=== PATIENT | male | born 1990 | race Hispanic/Latino ===

== ENCOUNTER 2025-04-06 16:19 | Inpatient (IN) | payer BC ==
[2025-04-06 18:05] LABS: Absolute Lymphocytes (CBC) 2.9 K/uL (0.7-4.9); Hematocrit 45.4 % (39.6-49.0); Hemoglobin 15.3 g/dL (13.6-17.9); MCH 30.4 pg (27.0-35.0); MCHC 33.7 g/dL (32.0-36.0); MCV 90.1 fL (80-100); MPV 10.8 fL (7.6-11.3); Nucleated RBC Absolute Count 0.0 (0-0); Nucleated Red Blood Cells % 0.1 % (0-0); RBC Red Blood Cell Count 5.04 M/uL (4.33-5.43); White Blood Count 18.30 thou/uL (4.3-10.9)
[2025-04-06 18:16] LABS: Sqamous Epithelial <5 /HPF (None Seen); Urine Crystals Unidentified Few /HPF (None Seen); Urine Culture Reflex Order REFLEXED; Urine Microscopic Reflex YN ORDER UMIC; Urine WBC Clump Rare /HPF (None Seen); Urine Yeast (Budding) Trace /HPF (None Seen)
[2025-04-06 18:16] LABS: PT Prothrombin Time 14.0 SECONDS (10-13.0); PTT, Activated Partial Thromb 31.9 SECONDS (27.2-37.4); Protime INR 1.25
[2025-04-06 18:22] LABS: ALT/SGPT 60.0 U/L (16-61); AST/SGOT 27.0 U/L (15-37); Albumin 3.6 g/dL (3.4-5.0); Albumin/Globulin Ratio 0.9 (1.1-1.8); Alkaline Phosphatase 82.0 U/L (45-117); Anion Gap 9.6 mEq/L (5.0-15.0); BUN Blood Urea Nitrogen 15.0 mg/dL (7-18); Globulin 4.2 g/dL (2.3-3.5); Glucose Level 109.0 mg/dL (74-106); Potassium 3.6 mEq/L (3.5-5.1)
--- NOTE | 2025-04-06 18:35 | RAD REPORT ---
Stone Protocol CLINICAL INDICATION: Male, 34 years old.urinary symptoms, fever TECHNIQUE: CT abdomen and pelvis was performed, without IV contrast, as per department protocol using a CT stone protocol. Axial, sagittal and coronal reconstructions were obtained. One or more of the following dose reduction techniques were used: Automated exposure control, adjustment of the mA and/o r kV according to the patient size, and/or iterative reconstruction. Unless otherwise specified, incidental findings do not require dedicated imaging follow-up. [id number]. IV CONTRAST: Not administered. COMPARISON: No prior exams FINDINGS: The lack of intravenous contrast limits the sensitivity of this exam for evaluation of solid visceral organs, vascular structures, and retroperitoneum. LOWER CHEST: No acute process identified.No significant pericardial effusion. UPPER GI: No significant abnormality. LIVER: Hepatic steatosis, but otherwise unremarkable. GALLBLADDER/BILE DUCTS: No biliary ductal dilatation.? PANCREAS: No mass, ductal dilation, or dayne-pancreatic fluid. SPLEEN: Unremarkable. ADRENALS: No adrenal masses. KIDNEYS AND URETERS: No hydronephrosis.Limited evaluation for renal lesions in the absence of IV cont rast.No renal calculi.No ureteral calculi. ABDOMINAL AORTA AND OTHER VESSELS: Normal caliber aorta and IVC. PERITONEUM: No abnormal free fluid. No free air. LYMPH NODES: No pathologic lymphadenopathy. ABDOMINAL WALL: Fat containing inguinal hernias. SMALL BOWEL/COLON: Small bowel has normal course and caliber. No colonic wall thickening or pericolon ic inflammatory changes.Normal appendix. URINARY BLADDER: Underdistended but grossly unremarkable. REPRODUCTIVE ORGANS: No pathologic process. MUSCULOSKELETAL: No acute or suspicious osseous abnormality. ADDITIONAL FINDINGS: None. IMPRESSION: No acute findings within the abdomen or pelvis.
[2025-04-06] MEDS ORDERED: ACETAMINOPHEN 500 MG TAB ONE (18:51)
[2025-04-06] MEDS ORDERED: IBUPROFEN 400 MG TAB ONE (18:51)
[2025-04-06] MEDS ORDERED: NA CHLORIDE 0.9% 500 ML ONE (18:51)
[2025-04-06] MEDS ORDERED: CIPROFLOXACIN 400mg IV 400 MG/200 ML BAG IV ONE (19:06)
--- NOTE | 2025-04-06 19:23 | ER ---
Nurse's Notes [facility] Name: Kane Elizondo Age: 34 yrs Sex: Male : 1990 Arrival Date: 04/06/2025 Time: 16:19 Bed 5 Private MD: Diagnosis: Fever, unspecified;UTI/ Urinary tract infection, site not specified;Tachycardia, unspecified Presentation: 04/06 17:02 Chief complaint: Patient states: WOKE UP FEELING NAUSEOUS AND BEGAN HAVING CHILLS AND dd2 SWEATS WITH FEELING THE NEED TO URINATE BUT DECREASED AMOUNT. REPORTS WENT TO URGENT CARE AND WAS ADVISED TO COME TO ER. Coronavirus screen: At this time, the client does not indicate any symptoms associated with coronavirus-19. Ebola Screen: No symptoms or risks identified at this time. Initial Sepsis Screen: Does the patient meet any 2 criteria? No. Patient's initial sepsis screen is negative. Does the patient have a suspected source of infection? No. Patient's initial sepsis screen is negative. Risk Assessment: Do you want to hurt yourself or someone else? Patient reports no desire to harm self or others. Onset of symptoms was April 06, 2025. 17:02 Method Of Arrival: Ambulatory dd2 17:02 Acuity: SANDRA 3 dd2 Triage Assessment: 17:05 General: Appears in no apparent distress. uncomfortable, Behavior is calm, cooperative, dd2 appropriate for age. Pain: Complains of pain in left low back Pain does not radiate. Pain currently is 5 out of 10 on a pain scale. GI: Reports nausea. : Reports inability to void, pain in left in lower back urgency. Historical: - Allergies: 17:05 No Known Allergies; dd2 - PMHx: 17:05 None; dd2 - PSHx: 17:05 None; dd2 - Immunization history:: Adult Immunizations up to date. - Infectious Disease History:: Denies. - Social history:: Smoking status: Patient denies any tobacco usage or history of. - Family history:: not pertinent. - Hospitalizations: : No recent hospitalization is reported. Screenin:49 [facility] ED Fall Risk Assessment (Adult) History of falling in the last 3 months, ph including since admission No falls in past 3 months (0 pts) Confusion or Disorientation No (0 pts) Intoxicated or Sedated No (0 pts) Impaired Gait No (0 pts) Mobility Assist Device Used No (0 pt) Altered Elimination Yes (1 pt) Score/Fall Risk Level 0 - 2 = Low Risk Oriented to surroundings, Maintained a safe environment, Hourly rounding (assess needs \T\ fall precautionary measures) done. Abuse screen: Denies threats or abuse. Denies injuries from another. Nutritional screening: No deficits noted. Tuberculosis screening: No symptoms or risk factors identified. Assessment: 20:07 Reassessment: Patient appears in no apparent distress at this time. No changes from km10 previously documented assessment. Patient and/or family updated on plan of care and expected duration. Pain level reassessed. provider notified of temp 100. Vital Signs: 17:02 BP 142 / 78; Pulse 114; Resp 16; Temp 100.3; Pulse Ox 99% ; Weight 175.99 kg; Height 5 dd2 ft. 9 in. ; Pain 5/10; 19:00 BP 119 / 81; Pulse 121; Resp 22; Temp 98.5(O); Pulse Ox 100% on R/A; ar8 20:07 BP 117 / 56; Pulse 108; Resp 24; Temp 100(O); Pulse Ox 97% on R/A; km10 17:02 Body Mass Index 57.30 (175.99 kg, 175.26 cm) dd2 17:02 Pain Scale: Adult dd2 [place] Coma Score: 20:07 Eye Response: spontaneous(4). Motor Response: obeys commands(6). Verbal Response: km10 oriented(5). Total: 15. ED Course: 16:21 Patient arrived in ED. mr 16:22 Lazaro Rider MD is Attending Physician. rn 17:05 Triage completed. dd2 17:05 Arm band placed on right wrist. dd2 17:28 Initial lab(s) drawn, by ED staff, sent to lab. First set of blood cultures drawn by ED bc6 staff. 17:35 Second set of blood cultures drawn by ED staff. bc6 17:41 Inserted saline lock: 20 gauge in right antecubital area, using aseptic technique. bc6 Blood collected. Flushed with 10 mL NS. 17:55 CT Stone Protocol In Process Unspecified. EDMS 18:47 Silver Shields, RN is Primary Nurse. bp 18:49 Patient has correct armband on for positive identification. Bed in low position. Call light in reach. Side rails up X 1. 19:22 Robby Beltran MD is Hospitalizing Provider. rn 19:51 XRAY Chest (1 view) In Process Unspecified. EDMS 20:08 Primary Nurse role handed off by Silver Shields, KARTHIKEYAN [facility] 20:08 Marilyn Chen, KARTHIKEYAN is Primary Nurse. [facility] 21:18 No provider procedures requiring assistance completed. Patient admitted, IV remains in [facility] place. intact. 21:20 Provided Education on: need for admit . ha1 Administered Medications: 18:56 Drug: Acetaminophen PO 1000 mg PO once Route: PO; ar8 20:03 Follow up: Response: No adverse reaction; Temperature is unchanged [facility] 18:56 Drug: Ibuprofen PO 800 mg PO once Route: PO; ar8 20:03 Follow up: Response: No adverse reaction; Temperature is unchanged [facility] 18:58 Drug: NS 0.9% IV 500 ml 500 ml IV at 1 bolus once; to be given as a bolus over 30 ar8 minutes Volume: 500 ml; Route: IV; Rate: 1 bolus; Site: right antecubital; 20:03 Follow up: Response: No adverse reaction; IV Status: Completed infusion [facility] 19:10 Drug: Ciprofloxacin IVPB 400 mg 200 ml IVPB once over 60 mins Volume: 200 ml; Route: bm8 IVPB; Infused Over: 60 mins; Site: right antecubital; 20:03 Follow up: Response: No adverse reaction; IV Status: Infusion continued [facility] 19:28 Drug: NS 0.9% IV 1000 ml IV at 1000 ml once; to be given as a bolus over 60 minutes [facility] Route: IV; Rate: 1000 ml; Site: right antecubital; Medication: 18:49 VIS not applicable for this client. ph Outcome: 19:22 Decision to Hospitalize by Provider. rn 21:18 Admitted to Med/surg accompanied by tech, via wheelchair, room 230, 10 21:18 Condition: stable 21:18 Discharge instructions given to patient, Instructed on the need for admit, Demonstrated understanding of instructions, 21:21 Patient left the ED. ha1 Signatures: Dispatcher [employer] EDNE Cheri Delgado, Reg Reg Lazaro Joy MD MD rn Hall, Patricia, RN RN ph Peltier, Brian, RN RN bp Ayala, Pratibha, RN RN ha1 Karley Shearer 6 Margarito Ferrari, RN RN bm8 MARIJA PARIS, RN RN dd2 Marilyn Chen, RN RN km10 Josh Knight, RN RN ar8
--- NOTE | 2025-04-06 19:23 | EDPHYS ---
Physician Documentation [facility] Name: Kane Elizondo Age: 34 yrs Sex: Male : 1990 Arrival Date: 04/06/2025 Time: 16:19 Bed 5 Private MD: ED Physician Lazaro Rider HPI: 04/06 17:31 This 34 yrs old Male presents to ER via Ambulatory with complaints of Elevated furnace mason rate, Fever, Urinary Problem. 17:31 Patient reports seen in urgent care and sent here for fever, elevated heart rate and rn possible UTI. He was told that he needed further evaluation and they did not want to prescribe antibiotics. Patient states has had a UTI before. No known history of kidney stones or urinary problems. Denies abdominal pain. No vomiting.. Historical: - Allergies: 17:05 No Known Allergies; dd2 - PMHx: 17:05 None; dd2 - PSHx: 17:05 None; dd2 - Immunization history:: Adult Immunizations up to date. - Infectious Disease History:: Denies. - Social history:: Smoking status: Patient denies any tobacco usage or history of. - Family history:: not pertinent. - Hospitalizations: : No recent hospitalization is reported. ROS: 17:31 Constitutional: Positive for fever and chills Cardiovascular: Negative for chest pain, rn palpitations, and edema, Respiratory: Negative for shortness of breath, cough, wheezing, and pleuritic chest pain, Abdomen/GI: Negative for abdominal pain, nausea, vomiting, diarrhea, and constipation, Back: Negative for injury and pain, : Positive for dysuria and increased urinary frequency MS/Extremity: Negative for injury and deformity, Skin: Negative for injury, rash, and discoloration, Neuro: Positive for generalized weakness and malaise Exam: 17:31 Constitutional: This is a well developed, well nourished patient who is awake, alert, rn and in no acute distress. Ambulatory to triage without assistance or difficulty Cardiovascular: Tachycardic, regular. No pulse deficits. Respiratory: Speaking full sentences, unlabored. No increased work of breathing, no retractions or nasal flaring. Abdomen/GI: Soft, nontender Back: No spinal tenderness. No costovertebral tenderness. Full range of motion. Vital Signs: 17:02 BP 142 / 78; Pulse 114; Resp 16; Temp 100.3; Pulse Ox 99% ; Weight 175.99 kg; Height 5 dd2 ft. 9 in. ; Pain 5/10; 19:00 BP 119 / 81; Pulse 121; Resp 22; Temp 98.5(O); Pulse Ox 100% on R/A; ar8 20:07 BP 117 / 56; Pulse 108; Resp 24; Temp 100(O); Pulse Ox 97% on R/A; km10 17:02 Body Mass Index 57.30 (175.99 kg, 175.26 cm) dd2 17:02 Pain Scale: Adult dd2 [place] Coma Score: 20:07 Eye Response: spontaneous(4). Motor Response: obeys commands(6). Verbal Response: km10 oriented(5). Total: 15. MDM: 16:22 Medical Screening Exam initiated rn 19:18 Differential diagnosis: viral Infection, bacterial infection, URI, pneumonia UTI. Data rn reviewed: vital signs, nurses notes, lab test result(s), radiologic studies, CT scan, and as a result, I will admit patient. Consideration of Admission/Observation Patient was admitted/placed on observation. Escalation of care including admission/observation considered. Counseling: I had a detailed discussion with the patient and/or guardian regarding the historical points, exam findings, and any diagnostic results supporting the discharge/admit diagnosis, lab results, radiology results, the need for further work-up and treatment in the hospital. Response to treatment: the patient's symptoms have mildly improved after treatment. ED course: CT abdomen pelvis negative for acute findings. 18,000 WBC. Patient is now afebrile but still tachycardic and tachypneic. Chest x-ray images pending. Will admit to hospitalist service with IV antibiotics and further evaluation. No appendicitis on CT abdomen pelvis. No oxygen requirement.. 19:48 Independent interpretation of the following test(s) in the Emergency Department X-Ray: rn My interpretation is Chest x-ray images show central congestion per my interpretation. Negative for pneumothorax.. 04/06 17:03 Order name: Blood Culture Adult (2) rn 04/06 17:03 Order name: CBC with Diff; Complete Time: 18:54 rn 04/06 17:03 Order name: CMP; Complete Time: 18:54 rn 04/06 17:03 Order name: Lactate w/ 2H reflex if indic.; Complete Time: 18:54 04/06 17:03 Order name: Protime (+inr); Complete Time: 18:54 04/06 17:03 Order name: Ptt, Activated; Complete Time: 18:54 04/06 17:03 Order name: UA Rfx Bear Cult if indicated; Complete Time: 18:54 04/06 18:20 Order name: Urine Culture [facility] 04/06 19:17 Order name: Group A Streptococcus Rapid; Complete Time: 19:47 rn 04/06 19:45 Order name: CBC with Automated Diff EDAL 04/06 19:45 Order name: CBC with Automated Diff EDAL 04/06 19:45 Order name: Comprehensive Metabolic Panel [facility] 04/06 19:45 Order name: Comprehensive Metabolic Panel [facility] 04/06 19:48 Order name: Throat Culture [facility] 04/06 17:03 Order name: CT Stone Protocol; Complete Time: 18:54 04/06 19:17 Order name: XRAY Chest (1 view) 04/06 17:03 Order name: Accucheck; Complete Time: 18:50 04/06 17:03 Order name: Cardiac monitoring; Complete Time: 19:32 04/06 17:03 Order name: EKG - Nurse/Tech; Complete Time: 20:04 04/06 17:03 Order name: IV Saline Lock - Large Bore; Complete Time: 18:50 04/06 17:03 Order name: Labs collected and sent; Complete Time: 18:50 04/06 17:03 Order name: O2 Per Protocol; Complete Time: 18:50 04/06 17:03 Order name: O2 Sat Monitoring; Complete Time: 18:50 04/06 17:03 Order name: Vital Signs; Complete Time: 18:50 rn Administered Medications: 18:56 Drug: Acetaminophen PO 1000 mg PO once Route: PO; ar8 20:03 Follow up: Response: No adverse reaction; Temperature is unchanged km10 18:56 Drug: Ibuprofen PO 800 mg PO once Route: PO; ar8 20:03 Follow up: Response: No adverse reaction; Temperature is unchanged km10 18:58 Drug: NS 0.9% IV 500 ml 500 ml IV at 1 bolus once; to be given as a bolus over 30 ar8 minutes Volume: 500 ml; Route: IV; Rate: 1 bolus; Site: right antecubital; 20:03 Follow up: Response: No adverse reaction; IV Status: Completed infusion 19:10 Drug: Ciprofloxacin IVPB 400 mg 200 ml IVPB once over 60 mins Volume: 200 ml; Route: bm8 IVPB; Infused Over: 60 mins; Site: right antecubital; 20:03 Follow up: Response: No adverse reaction; IV Status: Infusion continued 19:28 Drug: NS 0.9% IV 1000 ml IV at 1000 ml once; to be given as a bolus over 60 minutes Route: IV; Rate: 1000 ml; Site: right antecubital; Disposition Summary: 04/06/25 19:22 Hospitalization Ordered Notes: Hospitalization Status: Observation rn Provider: Robby Beltran rn Location: Telemetry/MedSurg (observation) rn Condition: Stable rn Problem: new rn Symptoms: have improved rn Bed/Room Type: Standard rn Room Assignment: 230(04/06/25 20:09) vk Diagnosis - Fever, unspecified rn - UTI/ Urinary tract infection, site not specified rn - Tachycardia, unspecified rn Forms: - Medication Reconciliation Form rn - SBAR form rn - Leadership Thank You Letter rn Signatures: Dispatcher [employer] EDMS Lazaro Rider MD MD rn Kruse, Vivian vk McDonald, Brad RN RN bm8 MARIJA PARIS RN RN dd2 Marilyn Chen, RN RN km10 Josh Knight, RN RN ar8 Corrections: (The following items were deleted from the chart) 17:03 17:03 BLOOD CULTURE*+BA.LAB.BRZ ordered. EDAL EDMS 17: 17:03 CBC+H.LAB.BRZ ordered. EDMS EDMS 17:03 17:03 COMPREHENSIVE METABOLIC PANEL+C.LAB.BRZ ordered. EDMS EDMS 17: 17:03 LACTATE+C.LAB.BRZ ordered. EDAL EDMS 17:03 17:03 PROTIME (+INR)+COAG.LAB.BRZ ordered. EDAL EDMS 17:03 17:03 PTT, ACTIVATED+COAG.LAB.BRZ ordered. EDAL EDMS 17:03 17:03 UA Rfx Bear Cult if indicated+U.LAB.BRZ ordered. EDMS EDMS 17:03 17:03 Stone Protocol+CT.RAD.BRZ ordered. EDMS EDMS 20:09 19:22 rn vk
[2025-04-06] MEDS ORDERED: NA CHLORIDE 0.9% 1,000 ML ONE (19:26)
--- NOTE | 2025-04-06 19:40 | P.HP ---
Certification for Inpatient Patient admitted to: Inpatient With expected LOS: >2 Midnights Practitioner: I am a practitioner with admitting privileges, knowledge of patient current condition, hospital course, and medical plan of care. Services: Services provided to patient in accordance with Admission requirements found in Title 42 Section 412.3 of the Code of Federal Regulations Patient History Date of Service: 04/06/25 Reason for admission: UTI History of Present Illness: 34 yrs old Male with no significant past medical history presents to ER with complaints of Elevated heart rate, Fever, dysuria and frequency of micturition. The patient started having symptoms a day ago and was seen in the urgent care. They did a flu test and COVID test which was negative as per the patient. But the patient continues to have elevated heart rate and having subjective fever and was sent over to the ER for further management. Patient denies any sick contacts. No cough. Denies any chest pain or shortness of breath. No nausea vomiting or diarrhea. Patient has some dysuria and frequency of micturition. Patient was assessed in the ER and is admitted for further management of sepsis possibly due to UTI. Allergies No Known Allergies Allergy (Unverified 04/06/25 21:52) Home medications list reviewed: Yes - Past Medical/Surgical History Past Medical History: Reviewed- Non-Contributory Past Surgical History: Reviewed- Non-Contributory - Family History Family History: Reviewed- Non-Contributory - Family History Mother -: Diabetes - Social History Smoking Status: Never smoker Review of Systems 10-point ROS is otherwise unremarkable Other: Review of systems constitutional: Reports: generalized weakness. Skin: Denies: rash. Allergy/Immun: Denies: rhinorrhea, sneezing. Eyes: Denies: visual loss/blurred. ENT: Denies: earache, nasal congestion. Respiratory: Denies: non productive cough. Cardiovascular: Denies: chest pain, palpitations. GI: Denies: diarrhea, nausea. : Denies: dysuria. Musculoskeletal: Reports: arthritis. Denies: extremity pain. Heme: Denies: bleeding. Endocrine: Denies: polydipsia. Neuro: Reports: dizziness, gait problem, lightheaded, spinning sensation. Psych: Reports: anxiety. All systems rev & neg: except as noted Physical Examination - Vital Signs Temperature: 100.3 F Blood Pressure: 142/78 Pulse: 114 Respirations: 16 Pulse Ox (%): 94 - Physical Exam General: Alert, Oriented x3, Obese HEENT: Atraumatic, Normocephalic Neck: Supple, 2+ carotid pulse no bruit Respiratory: Clear to auscultation bilaterally, Normal air movement Cardiovascular: Regular rate/rhythm, Normal S1 S2 Capillary refill: <2 Seconds Gastrointestinal: Soft and benign, W/out hepatosplenomegaly Musculoskeletal: No clubbing, No swelling Integumentary: No rashes, No breakdown Neurological: Normal gait, Normal speech, Normal strength at 5/5 x4 extr, Cranial nerves 3-12 intact, Normal reflexes 2+, Normal affect Lymphatics: No axilla or inguinal lymphadenopathy - Studies Laboratory Data (last 24 hrs) 04/06/25 04/06/25 04/06/25 17:35 17:35 17:35 WBC 18.30 H Hgb 15.3 Hct 45.4 Plt Count 166 PT 14.0 H INR 1.25 APTT 31.9 Sodium 137 Potassium 3.6 BUN 15 Creatinine 1.14 Glucose 109 H Total Bilirubin 1.9 H AST 27 ALT 60 Alkaline Phosphatase 82 Assessment and Plan - Plan Sepsis Possibly due to UTI Started on antibiotic Pain control Will obtain cultures Change antibiotic as per sensitivity Leukocytosis Monitor CBC in a.m. Elevated bilirubin Will monitor LFTs in a.m. Obesity Advise lifestyle modification GI/DVT prophylaxis Advanced directive full code Discharge Plan: Home Plan to discharge in: 48 Hours - Advance Directives Does patient have a Living Will: No Does patient have a Durable POA for Healthcare: No - Code Status/Comfort Care Code Status: Full Code Time Spent Managing Pts Care (In Minutes): 48
[2025-04-06] MEDS ORDERED: ONDANSETRON 4 MG/2 ML VIAL IV PRN (19:41)
--- NOTE | 2025-04-06 20:06 | RAD REPORT ---
EXAM: Chest Single View HISTORY: 34 years Male Cough;Fever COMPARISON: Same-day CT of the abdomen and pelvis FINDINGS: LUNGS/PLEURA: Low lung volumes which limits evaluation. No definite acute process.. CARDIAC/MEDIASTINUM: The cardiac silhouette is within normal limits. UPPER ABDOMEN: No significant abnormality. BONES: No acute abnormality. LINES/TUBES/OTHER: N/A IMPRESSION: Low lung volumes without evidence of an acute process.
[2025-04-06 21:32] VITALS: BMI 56.9
[2025-04-07] MEDS: ENOXAPARIN 40 MG/0.4 ML SQ SCH (08:44)
[2025-04-07] MEDS: PIPER TAZO 3.375 GM in NA CHLORIDE 0.9% 100 ML IV SCH (08:44)
[2025-04-07 09:21] LABS: Absolute Lymphocytes (CBC) 2.5 K/uL (0.7-4.9); Hematocrit 41.9 % (39.6-49.0); Hemoglobin 14.2 g/dL (13.6-17.9); MCH 30.2 pg (27.0-35.0); MCHC 33.8 g/dL (32.0-36.0); MCV 89.3 fL (80-100); MPV 10.5 fL (7.6-11.3); Nucleated RBC Absolute Count 0.0 (0-0); Nucleated Red Blood Cells % 0.0 % (0-0); RBC Red Blood Cell Count 4.70 M/uL (4.33-5.43); White Blood Count 17.10 thou/uL (4.3-10.9)
[2025-04-07 09:41] LABS: ALT/SGPT 44.0 U/L (16-61); AST/SGOT 20.0 U/L (15-37); Albumin 3.1 g/dL (3.4-5.0); Albumin/Globulin Ratio 0.8 (1.1-1.8); Alkaline Phosphatase 72.0 U/L (45-117); Anion Gap 5.3 mEq/L (5.0-15.0); BUN Blood Urea Nitrogen 9.0 mg/dL (7-18); Globulin 3.7 g/dL (2.3-3.5); Glucose Level 145.0 mg/dL (74-106); Magnesium 1.8 mg/dL (1.6-2.4); Potassium 3.3 mEq/L (3.5-5.1)
[2025-04-07] MEDS: ACETAMINOPHEN 325 MG TABLET PO PRN (11:11)
[2025-04-07] MEDS: POTASS/SODIUM PHOSPHATE 1 PKT POWD.PACK PO SCH ×2 (11:11→20:09)
--- NOTE | 2025-04-07 15:45 | P.PN ---
Subjective Date of Service: 04/07/25 Chief Complaint: UTI Patient reports significant improvement in his dysuria and urinary frequency. He denies any suprapubic pain or pain in the perineum. No fever since admission. Physical Examination - Vital Signs Temperature: 98.1 F Blood Pressure: 127/72 Pulse: 98 Respirations: 20 Pulse Ox (%): 99 - Studies Laboratory Data (last 24 hrs) 04/06/25 04/06/25 04/06/25 17:35 17:35 17:35 WBC 18.30 H Hgb 15.3 Hct 45.4 Plt Count 166 PT 14.0 H INR 1.25 APTT 31.9 Sodium 137 Potassium 3.6 BUN 15 Creatinine 1.14 Glucose 109 H Total Bilirubin 1.9 H AST 27 ALT 60 Alkaline Phosphatase 82 Assessment And Plan - Plan Physical examination General: Alert and oriented x3, NAD, morbidly obese. Neck: No elevated JVD Heart: Heart sounds 1 and 2 normal, regular rhythm, normal rate, no pedal edema Lungs: Clear to auscultation bilaterally, adequate breath sounds bilaterally, no rhonchi or crackles. Abdomen: Soft, nondistended, nontender, normal bowel sounds. Extremities: No tenderness, no deformity Skin: Normal skin turgor, no rash, no nodules or ulcers. Neuro: No focal motor deficit. Normal speech. Psychiatry: Normal mood, no agitation. Diagnosis Sepsis UTI Urine cultures growing gram-negative rods. Blood cultures pending. No significant improvement in leukocytosis with Zosyn. Change IV Zosyn to IV Rocephin Follow cultures. Analgesics as needed Hypophosphatemia Replace phosphorus. Elevated bilirubin Total bilirubin trended up. Obtain liver ultrasound Monitor LFTs. Morbid obesity Weight loss by diet and exercise advised. DVT prophylaxis: Lovenox
[2025-04-07] MEDS: MAGNESIUM SULFATE 1 gm IVPB 1 GM/100 ML BAG IV ONE (16:04)
[2025-04-07] MEDS: POTASSIUM CL SA 10 MEQ TAB PO ONE (16:04)
[2025-04-07 18:57] LABS: Magnesium 2.1 mg/dL (1.6-2.4)
[2025-04-08] MEDS: POTASSIUM CL SA 10 MEQ TAB PO ONE ×3 (00:58→15:57)
[2025-04-08 06:00] LABS: Absolute Lymphocytes (CBC) 2.0 K/uL (0.7-4.9); Hematocrit 42.3 % (39.6-49.0); Hemoglobin 14.4 g/dL (13.6-17.9); MCH 30.5 pg (27.0-35.0); MCHC 34.1 g/dL (32.0-36.0); MCV 89.4 fL (80-100); MPV 10.5 fL (7.6-11.3); Nucleated RBC Absolute Count 0.0 (0-0); Nucleated Red Blood Cells % 0.0 % (0-0); RBC Red Blood Cell Count 4.72 M/uL (4.33-5.43); White Blood Count 12.40 thou/uL (4.3-10.9)
[2025-04-08 06:27] LABS: Anion Gap 6.4 mEq/L (5.0-15.0); BUN Blood Urea Nitrogen 7.0 mg/dL (7-18); Glucose Level 109.0 mg/dL (74-106); Potassium 3.4 mEq/L (3.5-5.1)
[2025-04-08] MEDS: POTASS/SODIUM PHOSPHATE 1 PKT POWD.PACK PO SCH (08:55)
--- NOTE | 2025-04-08 14:47 | P.DS ---
Admission Date: 04/06/25 Discharge Date: 04/08/25 Disposition: ROUTINE DISCHARGE Discharge Condition: FAIR Reason for Admission: UTI Brief History of Present Illness: 34 yrs old Male with no significant past medical history presents to outside ER with complaints of Elevated heart rate, Fever, dysuria and frequency of micturition. They did a flu test and COVID test which was negative as per the patient. But the patient continues to have elevated heart rate and having subjective fever and was sent over to the [facility] for further management. UA done in the emergency department suggested UTI. Patient met criteria for sepsis with leukocytosis and tachycardia. He was hospitalized for further management Hospital Course: Diagnosis Acute cystitis without hematuria Sepsis Morbid obesity Patient admitted to the medical floor and treated with IV Rocephin. Blood culture showed no growth. Leukocytosis significantly improved with the IV Rocephin. Patient symptoms improved and almost resolved, no increased urinary frequency and he has minimal dysuria. Urine culture showed mixed growth. Since patient responded well to IV Rocephin, he is discharged with oral Vantin. Patient to complete 14 days of antibiotic. Vital Signs/Physical Exam: Temp Pulse Resp BP Pulse Ox 98.8 F 95 H 14 139/62 96 04/08/25 12:00 04/08/25 12:00 04/08/25 12:00 04/08/25 12:00 04/08/25 12:00 Laboratory Data at Discharge: WBC 12.40 thou/uL (4.3-10.9) H 04/08/25 05:40 Hgb 14.4 g/dL (13.6-17.9) 04/08/25 05:40 Hct 42.3 % (39.6-49.0) 04/08/25 05:40 Plt Count 122 thou/uL (152-406) L 04/08/25 05:40 PT 14.0 SECONDS (10-13.0) H 04/06/25 17:35 INR 1.25 04/06/25 17:35 APTT 31.9 SECONDS (27.2-37.4) 04/06/25 17:35 Sodium 135 mEq/L (136-145) L 04/08/25 05:40 Potassium 3.6 mEq/L (3.5-5.1) 04/08/25 14:12 BUN 7 mg/dL (7-18) 04/08/25 05:40 Creatinine 0.94 mg/dL (0.70-1.30) 04/08/25 05:40 Glucose 109 mg/dL (74-106) H 04/08/25 05:40 Phosphorus Cancelled 04/08/25 Unknown Magnesium 2.1 mg/dL (1.6-2.4) 04/07/25 18:30 Total Bilirubin 2.4 mg/dL (0.2-1.0) H 04/07/25 09:15 AST 20 U/L (15-37) 04/07/25 09:15 ALT 44 U/L (16-61) 04/07/25 09:15 Alkaline Phosphatase 72 U/L (45-117) 04/07/25 09:15 Home Medications: NK [No Home Meds] 04/07/25 Diet: AHA Activity: Ad riaz Followup: NONE,NONE [Primary Care Provider] -
--- NOTE | 2025-04-08 14:49 | P.PN ---
Subjective Date of Service: 04/08/25 Chief Complaint: UTI Patient only minimal dysuria. Urinary frequency resolved. No fever since admission. Physical Examination - Vital Signs Temperature: 98.8 F Blood Pressure: 139/62 Pulse: 95 Respirations: 14 Pulse Ox (%): 96 Assessment And Plan - Plan Physical examination General: Alert and oriented x3, NAD, morbidly obese. Heart: Heart sounds 1 and 2 normal, regular rhythm, normal rate, no pedal edema Lungs: Clear to auscultation bilaterally, adequate breath sounds bilaterally, no rhonchi or crackles. Abdomen: Soft, nondistended, nontender, normal bowel sounds. Extremities: No tenderness, no deformity Skin: Normal skin turgor, no rash, no nodules or ulcers. Neuro: No focal motor deficit. Normal speech. Psychiatry: Normal mood, no agitation. Diagnosis Sepsis ESBL E. coli UTI Urine cultures growing ESBL E. coli Blood cultures: No growth to date Change IV antibiotics to IV meropenem. Patient need to complete 14 days of treatment Analgesics as needed Hypophosphatemia Hypokalemia Replace electrolytes as needed Elevated bilirubin CT abdomen and pelvis shows hepatic steatosis Elevated LFT likely secondary to hepatic steatosis Morbid obesity Weight loss by diet and exercise advised. DVT prophylaxis: Lovenox
[2025-04-08] MEDS ORDERED: CEFTRIAXONE 1,000 MG in NA CHLORIDE 0.9% 50 ML IVPB SCH (15:46)
[2025-04-08] MEDS: Meropenem 1,000 MG in NA CHLORIDE 0.9% 100 ML IV SCH (15:56)
[2025-04-08] MEDS: Mupirocin NASAL 2 APPL/1 GM TUBE NAS SCH (20:42)
--- NOTE | 2025-04-09 02:34 | CON ---
Date of Consultation: 04/08/2025 Reason For Consultation: Malfunction of the PICC line. History Of Present Illness: This is the case of a 34-year-old patient admitted to the hospital for I V antibiotics, had a PICC line placed today but the PICC line tech noticed the PICC line had not been able to be flushed. He was trying to then replace it, but when trying to remove it, he could not re move it, so he called me for advice. We get an x-ray of that area. We noticed to be what it looked like a knot at very superficial level right above the level of the skin, although the catheter is sti ll most likely in the vein. Allergies: NONE. Medications: Reviewed. Medical History: UTI. Family History: Diabetes. Social History: He does not smoke. He does not drink alcohol. Review of Systems: No shortness of breath. No chest pain. No fever. Physical Examination: Vital Signs: Stable. General: The patient is awake, alert. Pupils are equal and reactive. Anicteric. Neck: Supple. Chest: Clear. Heart: S1, S2. Abdomen: Soft and depressible. Extremities: Over the right upper arm, the patient has a PICC line in the basilic vein area. There are good peripheral pulses, radialis pulses. Good range of motion. No swelling over the area of the PICC line. There is also a more distal IV line in the area of the forearm that they have been using and that is the one they would like to replace with a PICC line since he is going to need long-term antibiotics. No cyanosis present. Full range of motion. No motor or sensory deficits. Laboratory Data: Blood work shows WBC count 12.4 from 17. X-ray of the brachial region, we see the PICC line but at the area where to the skin, it l ooked like there is a knot. How it got there, I cannot explain it, but of note there is at least 1 o r 2 cm past that knot. At that moment, I explained to him the need for removal of this nonfunctional PICC lines. The benefits, alternatives, and risks fully explained, which was including infection, b leeding, and DVTs and PEs. There were also may be the damage of the catheter. After that, we procee ded then to remove the tape present, then with sterile glove under aseptic conditions sinc e I saw the x-ray ready, I so the area where the catheter was having pressure pulled a little bit and then removed the catheter intact and indeed we noticed to have a real knot on the area of the line, how that it got there, I cannot explain, but the catheter came intact in 1 piece. The patient tolera devorah the procedure well. No bleeding. No edema. No active bleeding. So, we put dressings over that region and then the patient did well at the end of the case, have full range of motion with no senso ry or motor deficits and no shortness of breath, no chest pain. LELE/KALEBL Voice ID: [id number] Report ID: [id number]
[2025-04-09 05:29] LABS: Absolute Lymphocytes (CBC) 2.3 K/uL (0.7-4.9); Hematocrit 42.6 % (39.6-49.0); Hemoglobin 14.4 g/dL (13.6-17.9); MCH 30.2 pg (27.0-35.0); MCHC 33.8 g/dL (32.0-36.0); MCV 89.3 fL (80-100); MPV 10.4 fL (7.6-11.3); Nucleated RBC Absolute Count 0.0 (0-0); Nucleated Red Blood Cells % 0.1 % (0-0); RBC Red Blood Cell Count 4.77 M/uL (4.33-5.43); White Blood Count 6.20 thou/uL (4.3-10.9)
[2025-04-09 05:40] LABS: Anion Gap 6.6 mEq/L (5.0-15.0); BUN Blood Urea Nitrogen 7.0 mg/dL (7-18); Glucose Level 107.0 mg/dL (74-106); Potassium 3.6 mEq/L (3.5-5.1)
--- NOTE | 2025-04-09 05:50 | RAD REPORT ---
EXAM: XR Chest, 1 View CLINICAL HISTORY: The patient is 34 years old and is Male; PICC line placement TECHNIQUE: Frontal view of the chest. COMPARISON: No relevant prior studies available. FINDINGS: LUNGS: Unremarkable. No consolidation. PLEURAL SPACE: Unremarkable. No pneumothorax. HEART: Unremarkable. No cardiomegaly. MEDIASTINUM: Unremarkable. Normal mediastinal contour. BONES/JOINTS: Unremarkable. No acute fracture. TUBES, LINES AND DEVICES: A right upper extremity PICC line is noted coiled within the right uppe r arm. UPPER ABDOMEN: Unremarkable as visualized. IMPRESSION: A right upper extremity PICC line is noted coiled within the right upper arm. Electronically signed by: Deepthi Duke MD 04/09/2025 12:11 AM CDT RP Due to temporary technical issues with the PACS/Socitive reporting system, reports are being vic d by the in-house radiologist without review as a courtesy to ensure prompt reporting the interpreting radiologist is fully responsible for the content of the report. Transcribed Date/Time: 04/09/2025 5:49 AM
[2025-04-09] MEDS: POTASSIUM CL SA 10 MEQ TAB PO ONE (09:37)
--- NOTE | 2025-04-09 17:10 | P.PN ---
Subjective Date of Service: 04/09/25 Chief Complaint: UTI Patient has no complaints today. No fever. Physical Examination - Vital Signs Temperature: 98.0 F Blood Pressure: 127/72 Pulse: 100 Respirations: 16 Pulse Ox (%): 97 - Studies Microbiology Data (last 24 hrs): 04/06/25 17:43 Clean Catch Urine [place] Count - Final >100,000 CFU/ML. 04/06/25 17:43 Clean Catch Urine - Final Escherichia Coli Esbl Assessment And Plan - Plan Physical examination General: Alert and oriented x3, NAD, morbidly obese. Heart: Heart sounds 1 and 2 normal, regular rhythm, normal rate, no pedal edema Lungs: Clear to auscultation bilaterally, adequate breath sounds bilaterally, no rhonchi or crackles. Abdomen: Soft, nondistended, nontender, normal bowel sounds. Extremities: No tenderness, no deformity Skin: Normal skin turgor, no rash, no nodules or ulcers. Neuro: No focal motor deficit. Normal speech. Psychiatry: Normal mood, no agitation. Diagnosis Sepsis ESBL E. coli UTI Urine cultures growing ESBL E. coli Blood cultures: No growth to date Change IV antibiotics to IV meropenem. Patient need to complete 14 days of treatment Analgesics as needed Hypophosphatemia Hypokalemia Replace electrolytes as needed Elevated bilirubin CT abdomen and pelvis shows hepatic steatosis Elevated LFT likely secondary to hepatic steatosis Morbid obesity Weight loss by diet and exercise advised. 04/09 Patient's symptoms resolved. He needs to complete 14 days of IV meropenem/ertapenem for ESBL E. coli UTI. Social service assisting with arrangement. Continue IV meropenem as inpatient. Monitor and correct electrolytes as needed. DVT prophylaxis: Lovenox
[2025-04-10 05:26] LABS: Anion Gap 9.6 mEq/L (5.0-15.0); BUN Blood Urea Nitrogen 9.0 mg/dL (7-18); Glucose Level 102.0 mg/dL (74-106); Potassium 3.6 mEq/L (3.5-5.1)
[2025-04-10] MEDS: POTASSIUM CL SA 10 MEQ TAB PO ONE (09:01)
--- NOTE | 2025-04-10 14:49 | P.PN ---
Subjective Date of Service: 04/10/25 Chief Complaint: UTI Patient has no complaints today. Patient denies any dysuria. Urinary frequency resolved. No fever, he is eating well. Physical Examination - Vital Signs Temperature: 99.2 F Blood Pressure: 122/73 Pulse: 87 Respirations: 16 Pulse Ox (%): 97 Assessment And Plan - Plan Physical examination General: NAD, morbidly obese. Heart: Heart sounds 1 and 2 normal, regular rhythm, normal rate, no pedal edema Lungs: Clear to auscultation bilaterally, adequate breath sounds bilaterally, no rhonchi or crackles. Abdomen: Soft, nondistended, nontender, normal bowel sounds. Extremities: No tenderness, no deformity Skin: Normal skin turgor, no rash. Neuro: No focal motor deficit. Normal speech. Psychiatry: Normal mood, no agitation. Diagnosis Sepsis ESBL E. coli UTI Urine cultures growing ESBL E. coli Blood cultures: No growth to date Change IV antibiotics to IV meropenem. Patient need to complete 14 days of treatment Analgesics as needed Hypophosphatemia Hypokalemia Replace electrolytes as needed Elevated bilirubin CT abdomen and pelvis shows hepatic steatosis Elevated LFT likely secondary to hepatic steatosis Morbid obesity Weight loss by diet and exercise advised. 04/09 Patient's symptoms resolved. He needs to complete 14 days of IV meropenem/ertapenem for ESBL E. coli UTI. Social service assisting with arrangement. Continue IV meropenem as inpatient. Monitor and correct electrolytes as needed. 04/10 Clinically stable. Infectious disease recommends 7 days of IV meropenem. IV meropenem day 3. Midline for outpatient IV Invanz. Social service arranging home antibiotics with home health. Patient is clinically stable for discharge. DVT prophylaxis: Lovenox
--- NOTE | 2025-04-10 15:55 | P.CNS ---
Date of Consult: 04/10/25 reason for consult: ESBL ecoli urine HPI: 34 years old male with no PMH but did state he has a UTI couple of years ago, came to ER due to elvated HR, fever, dysuria,and urgency. denied SOB or chest pain, denied NVD. Pt report doing alot better after getting on Merrem. Denied problem with abx. Pt has ESBL ecoli in urine. VS stable today. No fever/chill. Allergy/AdvReac Type Severity Reaction Status Date / Time No Known Allergies Allergy Unverified 04/06/25 21:52 Current Medications Acetaminophen (Acetaminophen 325 Mg Tablet) 650 mg PO Q4HP PRN PRN Reason: Pain scale 2-4 (Mild) Last Admin: 04/10/25 03:23 Dose: 650 mg Enoxaparin Sodium (Enoxaparin 40 Mg/0.4 Ml) 40 mg SQ DAILY YOLI Last Admin: 04/10/25 09:02 Dose: 40 mg Meropenem 1,000 mg/ Sodium (Chloride) 100 mls @ 200 mls/hr IV Q8HR YOLI Last Admin: 04/10/25 09:02 Dose: 100 mls Mupirocin (Mupirocin Nasal 2 Appl/1 Gm Tube) 1 appl JOHNNIE BID YOLI Stop: 04/13/25 09:01 Last Admin: 04/10/25 09:02 Dose: 1 appl Ondansetron HCl (Ondansetron 4 Mg/2 Ml Vial) 4 mg IV Q6HP PRN PRN Reason: NAUSEA / VOMITING - Past Medical/Surgical History Past Medical History: Reviewed- Non-Contributory Past Surgical History: Reviewed- Non-Contributory - Family History Family History: Reviewed- Non-Contributory - Family History Mother -: Diabetes - Social History Smoking Status: Never smoker Review of Systems 10-point ROS is otherwise unremarkable Objective Temp Pulse Resp BP Pulse Ox 99.2 F 87 16 122/73 97 04/10/25 14:49 04/10/25 14:49 04/10/25 14:49 04/10/25 14:49 04/10/25 14:49 - Physical Exam General: Alert, Oriented x3, morbid Obese HEENT: Atraumatic, Normocephalic Neck: Supple, 2+ carotid pulse no bruit Respiratory: Clear to auscultation bilaterally, Normal air movement Cardiovascular: Regular rate/rhythm, Normal S1 S2 Capillary refill: <2 Seconds Gastrointestinal: round, Soft, NT Musculoskeletal: No clubbing, No swelling, normal gait Integumentary: No rashes, No breakdown Neurological: clear speech Microbiology 04/06/25 17:43 Clean Catch Urine [place] Count - Final >100,000 CFU/ML. 04/06/25 17:43 Clean Catch Urine - Final Escherichia Coli Esbl 04/06/25 17:35 Blood - Blood Aerobic Blood Culture - Preliminary No growth in 24 hours. 04/06/25 17:35 Blood - Blood Anaerobic Blood Culture - Preliminary No growth in 24 hours. 04/06/25 17:35 Blood - Blood Aerobic Blood Culture - Preliminary No growth in 24 hours. 04/06/25 17:35 Blood - Blood Anaerobic Blood Culture - Preliminary No growth in 24 hours. 04/06/25 19:27 Throat Culture & Sensitivity - Preliminary NORMAL UPPER RESPIRATORY TOMMY GROWN. labs: wbc 6.2, platelet count 133, hgb 14.4, bun 9, cr 0.88 assessment and planning 1. ESBL E coli UTI 2. morbid obese 3. moderate protein calories malnourishment urine culture growing ESBL E coli. continue merrem x 7 days. tentative stop date apr 15 blood culture neg will continue monitor for infection with wbc and fever trend thank you dr Sarmiento for the consult case discussed with Dr Graham
[2025-04-11 05:22] LABS: Anion Gap 4.8 mEq/L (5.0-15.0); BUN Blood Urea Nitrogen 10.0 mg/dL (7-18); Glucose Level 104.0 mg/dL (74-106); Potassium 3.8 mEq/L (3.5-5.1)
[2025-04-11] MEDS: POTASSIUM 25 MEQ EFFERV TAB PO ONE (07:54)
[2025-04-11] MEDS ORDERED: POTASSIUM CL SA 10 MEQ TAB PO ONE (09:00)
--- NOTE | 2025-04-11 11:47 | PN ---
Subjective: The patient is seen in the room. Denies any headache, nausea, vomiting, chest pain, abd ominal pain, constipation, diarrhea. No challenges with the antibiotic. The patient is currently on meropenem. Objective: Vital Signs: Temperature 97, pulse 80, respirations 18, blood pressure 144/81. Lungs: Basal crackles. Heart: S1, S2. Regular. Abdomen: Soft, nontender. Bowel sounds present. Extremities: No edema. Laboratory Data: WBC 6.2, hemoglobin 14.4, platelets are 133. Chemistry shows BUN of 10, creatinine 0.8. Urinalysis shows wbc more than 50. Urine culture grew E coli ESBL from 04/06. The patient is currently on meropenem. Assessment And Plan: 1. Urosepsis with history of urinary tract infection in the past. We will recommend the patient to [place] followed by urologist as an outpatient. 2. Morbid obesity, on Ozempic. 3. Moderate protein-calorie malnourishment. 4. Leukocytosis, improving. 5. Thrombocytopenia. 6. Hematuria. 7. Leukorrhea. 8. Funguria. 9. Continue to monitor signs of infection with WBC and fever trends. We will follow the patient as n eeded. NF/MODL Voice ID: [id number] Report ID: [id number]
--- NOTE | 2025-04-11 12:37 | P.PN ---
Date of Service: 04/11/25 Subjective: improving each day feeling close to his baseline no further issues urinating 2nd episode of UTI -1st one was ~2011 Physical Exam: GEN: Alert, oriented, NAD CV: Regular rate and rhythm, no edema Pulm: Nonlabored respirations on room air Neuro: Normal speech, normal affect Problem List: Sepsis secondary to UTI - E. coli ESBL Hypophosphatemia, resolved Hypokalemia, resolved Elevated bilirubin Sepsis secondary to UTI - E. coli ESBL Urine cx: E. coli ESBL only susceptible to merrem/nitrofurantoin Blood cx: NGTD Continue IV merrem (04/08-04/14) for 1 week total ID is following PICC line placed for IV abx. Currently being setup. Hypophosphatemia, resolved Hypokalemia, resolved monitor and replete electrolytes as needed Elevated bilirubin CT abdomen and pelvis shows hepatic steatosis VTE: Lovenox Code: Full Dispo: Home Pending IV abx setup Time Spent Managing Pts Care (In Minutes): 45
[2025-04-11 18:08] LABS: Sqamous Epithelial <5 /HPF (None Seen); Urine Crystals Unidentified Few /HPF (None Seen); Urine Micro Reflex YN NO BILL MICROSCOPIC; Urine WBC Clump Rare /HPF (None Seen); Urine Yeast (Budding) Trace /HPF (None Seen)
[2025-04-12 07:14] LABS: ALT/SGPT 98.0 U/L (16-61); AST/SGOT 68.0 U/L (15-37); Albumin 2.8 g/dL (3.4-5.0); Albumin/Globulin Ratio 0.7 (1.1-1.8); Alkaline Phosphatase 71.0 U/L (45-117); Anion Gap 3.9 mEq/L (5.0-15.0); BUN Blood Urea Nitrogen 10.0 mg/dL (7-18); Globulin 4.0 g/dL (2.3-3.5); Glucose Level 99.0 mg/dL (74-106); Magnesium 2.4 mg/dL (1.6-2.4); Potassium 3.9 mEq/L (3.5-5.1)
--- NOTE | 2025-04-12 12:05 | P.PN ---
Date of Service: 04/12/25 Subjective: feeling better no issues overnight urinating without issues afebrile Physical Exam: GEN: Alert, oriented, NAD CV: Regular rate and rhythm, no edema Pulm: Nonlabored respirations on room air Neuro: Normal speech, normal affect Problem List: Sepsis secondary to UTI - E. coli ESBL Hypophosphatemia, resolved Hypokalemia, resolved Elevated bilirubin, resolved Sepsis secondary to UTI - E. coli ESBL Urine cx: E. coli ESBL only susceptible to merrem/nitrofurantoin Blood cx: NGTD Continue IV merrem (04/08-04/15) for 1 week total - last dose 8/2 AM ID is following PICC line placed for IV abx. Currently being setup. seems unlikely to be able to set up due to insurance / out of network, may end up being here until 8/2 AM to complete course Hypophosphatemia, resolved Hypokalemia, resolved monitor and replete electrolytes as needed Elevated bilirubin, resolved CT abdomen and pelvis shows hepatic steatosis T. bili resolved VTE: Lovenox Code: Full Dispo: Home Pending IV abx setup vs completes abx course Time Spent Managing Pts Care (In Minutes): 35
--- NOTE | 2025-04-12 14:16 | P.PN ---
Date of Service: 04/12/25 subjective: states doing well. denied fever/chill. denied problem with abx. denied abdominal pain, NVD. seen sitting in chair objective Temp Pulse Resp BP Pulse Ox 97.8 F 73 20 106/58 L 96 04/12/25 12:00 04/12/25 12:00 04/12/25 12:00 04/12/25 12:00 04/12/25 12:00 - Physical Exam General: Alert, Oriented x3, morbid Obese HEENT: Atraumatic, Normocephalic Neck: Supple, 2+ carotid pulse no bruit Respiratory: Clear to auscultation bilaterally, Normal air movement Cardiovascular: Regular rate/rhythm, Normal S1 S2 Capillary refill: <2 Seconds Gastrointestinal: round, Soft, NT Musculoskeletal: No clubbing, No swelling, normal gait Integumentary: No rashes, No breakdown Neurological: clear speech Microbiology 04/06/25 17:35 Blood - Blood Aerobic Blood Culture - Final No growth in 5 days. 04/06/25 17:35 Blood - Blood Anaerobic Blood Culture - Final No growth in 5 days. 04/06/25 17:35 Blood - Blood Aerobic Blood Culture - Final No growth in 5 days. 04/06/25 17:35 Blood - Blood Anaerobic Blood Culture - Final No growth in 5 days. 04/06/25 19:27 Throat Culture & Sensitivity - Final NORMAL UPPER RESPIRATORY TOMMY GROWN. 04/06/25 17:43 Clean Catch Urine [place] Count - Final >100,000 CFU/ML. 04/06/25 17:43 Clean Catch Urine - Final Escherichia Coli Esbl labs: 6.2 wbc, hgb 14.4, plt count 133, BUN 10, cr 0.76, albumin 2.8 assessment and planning 1. urosepsis; ESBL E coli UTI 2. morbid obese 3. moderate protein calories malnourishment 4. thrombocytopenia urine culture growing ESBL E coli. continue merrem x 7 days. tentative stop date apr 15 blood culture neg will continue monitor for infection with wbc and fever trend case discussed with Dr Graham
[2025-04-13 08:42] LABS: Hematocrit 43.0 % (39.6-49.0); Hemoglobin 14.6 g/dL (13.6-17.9); MCH 30.4 pg (27.0-35.0); MCHC 33.9 g/dL (32.0-36.0); MCV 89.7 fL (80-100); MPV 9.9 fL (7.6-11.3); RBC Red Blood Cell Count 4.79 M/uL (4.33-5.43); White Blood Count 6.30 thou/uL (4.3-10.9)
[2025-04-13 09:01] LABS: ALT/SGPT 102.0 U/L (16-61); AST/SGOT 58.0 U/L (15-37); Albumin 2.9 g/dL (3.4-5.0); Albumin/Globulin Ratio 0.7 (1.1-1.8); Alkaline Phosphatase 77.0 U/L (45-117); Anion Gap 6.2 mEq/L (5.0-15.0); BUN Blood Urea Nitrogen 12.0 mg/dL (7-18); Globulin 4.0 g/dL (2.3-3.5); Glucose Level 96.0 mg/dL (74-106); Magnesium 2.3 mg/dL (1.6-2.4); Potassium 4.2 mEq/L (3.5-5.1)
--- NOTE | 2025-04-13 10:20 | P.PN ---
Date of Service: 04/13/25 Subjective: no issues overnight tolerating abx without issues afebrile Physical Exam: GEN: Alert, oriented, NAD CV: Regular rate and rhythm, no edema Pulm: Nonlabored respirations on room air Neuro: Normal speech, normal affect Problem List: Sepsis secondary to UTI - E. coli ESBL Hypophosphatemia, resolved Hypokalemia, resolved Elevated bilirubin, resolved Sepsis secondary to UTI - E. coli ESBL Urine cx: E. coli ESBL only susceptible to merrem/nitrofurantoin Blood cx: NGTD Continue IV merrem (04/08-04/15) for 1 week total - last dose 04/15 AM ID is following PICC line placed for IV abx. Seems unlikely for IV abx to set up due to insurance / out of network. Likely will be here until 8/2 AM to complete Abx course Stable. No issues overnight. Hypophosphatemia, resolved Hypokalemia, resolved monitor and replete electrolytes as needed Elevated bilirubin, resolved CT abdomen and pelvis shows hepatic steatosis T. bili resolved VTE: Lovenox Code: Full Dispo: Home seems unlikely for IV abx to set up due to insurance / out of network. Likely will be here until 8/2 AM to complete course Time Spent Managing Pts Care (In Minutes): 30
--- NOTE | 2025-04-13 21:38 | PN ---
Subjective: The patient sitting in easy chair. Denies any headache, nausea, vomiting, chest pain, abdominal pain, constipation, or diarrhea. Objective: Vital Signs: Temperature 98, pulse 70, respirations 18, blood pressure 119/63. Lungs: Basal crackles. Heart: S1, S2. Regular. Abdomen: Soft, nontender. Bowel sounds present. Extremities: No edema. Laboratory Data: WBC 6.3, hemoglobin 14.6, platelets 198. BUN of 12, creatinine of 0.81, albumin level 2.9. Urine cultures are growing E coli ESBL. Assessment And Plan: 1. Urosepsis secondary to ESBL E coli. 2. Morbid obesity. 3. Moderate protein-calorie malnourishment. 4. Thrombocytopenia, improved. Continue antibiotic total of 7 days. We will follow the patient as needed. NF/MODL Voice ID: [id number] Report ID: [id number] MANAN
--- NOTE | 2025-04-14 11:22 | P.PN ---
Date of Service: 04/14/25 Subjective: no acute events overnight stable Physical Exam: GEN: Alert, oriented, NAD CV: Regular rate and rhythm, no edema Pulm: Nonlabored respirations on room air Neuro: Normal speech, normal affect Problem List: Sepsis secondary to UTI - E. coli ESBL Hypophosphatemia, resolved Hypokalemia, resolved Elevated bilirubin, resolved Sepsis secondary to UTI - E. coli ESBL Urine cx: E. coli ESBL only susceptible to merrem/nitrofurantoin Blood cx: NGTD Continue IV merrem (04/08-04/15) for 1 week total - last dose 8 AM ID is following Stable. No issues overnight. Hypophosphatemia, resolved Hypokalemia, resolved monitor and replete electrolytes as needed Elevated bilirubin, resolved CT abdomen and pelvis shows hepatic steatosis T. bili resolved VTE: Lovenox Code: Full Dispo: Home, anticipate DC tomorrow morning after last dose of IV Merrem Time Spent Managing Pts Care (In Minutes): 30
--- NOTE | 2025-04-14 15:22 | P.PN ---
Date of Service: 04/14/25 subjective: states doing well. denied fever/chill. denied problem with abx. denied abdominal pain, NVD. seen ambulating to toilet objective Temp Pulse Resp BP Pulse Ox 97.7 F 72 14 114/56 L 97 04/14/25 12:00 04/14/25 12:00 04/14/25 12:00 04/14/25 12:00 04/14/25 12:00 - Physical Exam General: Alert, Oriented x3, morbid Obese HEENT: Atraumatic, Normocephalic Neck: Supple, 2+ carotid pulse no bruit Respiratory: Clear to auscultation bilaterally, Normal air movement Cardiovascular: Regular rate/rhythm, Normal S1 S2 Capillary refill: <2 Seconds Gastrointestinal: round, Soft, NT Musculoskeletal: No clubbing, No swelling, normal gait Integumentary: No rashes, No breakdown Neurological: clear speech Microbiology 04/06/25 17:35 Blood - Blood Aerobic Blood Culture - Final No growth in 5 days. 04/06/25 17:35 Blood - Blood Anaerobic Blood Culture - Final No growth in 5 days. 04/06/25 17:35 Blood - Blood Aerobic Blood Culture - Final No growth in 5 days. 04/06/25 17:35 Blood - Blood Anaerobic Blood Culture - Final No growth in 5 days. 04/06/25 19:27 Throat Culture & Sensitivity - Final NORMAL UPPER RESPIRATORY TOMMY GROWN. 04/06/25 17:43 Clean Catch Urine [place] Count - Final >100,000 CFU/ML. 04/06/25 17:43 Clean Catch Urine - Final Escherichia Coli Esbl labs: 6.2 wbc, hgb 14.4, plt count 133, BUN 10, cr 0.76, albumin 2.8 assessment and planning 1. urosepsis; ESBL E coli UTI 2. morbid obese 3. moderate protein calories malnourishment 4. thrombocytopenia urine culture growing ESBL E coli. continue merrem x 7 days. tentative stop date apr 15 blood culture neg will continue monitor for infection with wbc and fever trend case discussed with Dr Graham
[2025-04-14 22:05] VITALS: O2SAT 97
[2025-04-15 06:11] LABS: Hematocrit 43.0 % (39.6-49.0); Hemoglobin 14.7 g/dL (13.6-17.9); MCH 30.6 pg (27.0-35.0); MCHC 34.2 g/dL (32.0-36.0); MCV 89.6 fL (80-100); MPV 9.8 fL (7.6-11.3); RBC Red Blood Cell Count 4.80 M/uL (4.33-5.43); White Blood Count 7.90 thou/uL (4.3-10.9)
[2025-04-15 06:28] LABS: ALT/SGPT 101.0 U/L (16-61); AST/SGOT 44.0 U/L (15-37); Albumin 2.9 g/dL (3.4-5.0); Albumin/Globulin Ratio 0.7 (1.1-1.8); Alkaline Phosphatase 76.0 U/L (45-117); Anion Gap 4.0 mEq/L (5.0-15.0); BUN Blood Urea Nitrogen 14.0 mg/dL (7-18); Globulin 4.1 g/dL (2.3-3.5); Glucose Level 93.0 mg/dL (74-106); Potassium 4.0 mEq/L (3.5-5.1)
--- NOTE | 2025-04-15 08:11 | P.DS ---
Admission Date: 04/06/25 Discharge Date: 04/15/25 Disposition: ROUTINE DISCHARGE Discharge Condition: GOOD Reason for Admission: UTI Consultations: General surgery - Dr. Fernando ID - Dr. Graham Brief History of Present Illness: 34 yo M, PMH: None Patient presents to ER with complaints of Elevated heart rate, Fever, dysuria and frequency of micturition. The patient started having symptoms a day ago and was seen in the urgent care. They did a flu test and COVID test which was negative as per the patient. But the patient continues to have elevated heart rate and having subjective fever and was sent over to the ER for further management. Patient denies any sick contacts. No cough. Denies any chest pain or shortness of breath. No nausea vomiting or diarrhea. Patient has some dysuria and frequency of micturition. Patient was assessed in the ER and is admitted for further management of sepsis possibly due to UTI. Hospital Course: Problem List: Sepsis secondary to UTI - E. coli ESBL Hypophosphatemia, resolved Hypokalemia, resolved Elevated bilirubin, resolved Physician discharge instructions: Patient presented with fever and dysuria secondary to UTI. Urine culture grew ESBL E. coli only susceptible to Merrem and Nitrofurantoin. CT abdomen was negative for any acute findings, only noted hepatic steatosis. Chest xray was negative for any acute findings. Patient was initially treated with IV zosyn/Rocephin and switched to IV merrem following culture results. Patient felt improvement after switching antibiotics. Blood cultures were without growth. ID was consulted and recommended patient complete 1 week of IV merrem to treat multi drug resistant UTI. PICC line was placed for IV antibiotics on 04/08. Initially planning for patient to finish the rest of his antibiotic course as outpatient however there was some logistical issues with setting up outpatient antibiotics due to insurance / out of network. Patient completed 1 week of IV merrem while hospitalized to treat UTI (04/08- 04/15). Patient was feeling better, urinary symptoms improved, afebrile without leukocytosis for several days and was deemed stable for discharge. LFTs were noted to be mildly elevated during hospitalization. Suspect transient elevation secondary to merrem LFTs improved over the course of his hospitalization. Recommend repeat LFTs in a few weeks to ensure improvement / resolution Labs on admission -> peak -> discharge ALT: 60 -> 102 -> 101 AST: 27 -> 68 -> 44 T. bili: 1.9 -> 2.4 -> 0.7 Medications: no new medications. Follow up: PCP 3-5 days Please call to schedule / confirm appointments Patient was hospitalized from 04/06-04/15. Okay to return to work Tuesday 04/17 without restrictions. Physical Exam: GEN: Alert, oriented, NAD CV: Regular rate and rhythm, no edema Pulm: Nonlabored respirations on room air Neuro: Normal speech, normal affect Vital Signs/Physical Exam: Temp Pulse Resp BP Pulse Ox 98.2 F 67 18 120/69 99 04/15/25 04:00 04/15/25 04:00 04/15/25 04:00 04/15/25 04:00 04/15/25 04:00 Laboratory Data at Discharge: WBC 7.90 thou/uL (4.3-10.9) 04/15/25 05:34 Hgb 14.7 g/dL (13.6-17.9) 04/15/25 05:34 Hct 43.0 % (39.6-49.0) 04/15/25 05:34 Plt Count 219 thou/uL (152-406) 04/15/25 05:34 PT 14.0 SECONDS (10-13.0) H 04/06/25 17:35 INR 1.25 04/06/25 17:35 APTT 31.9 SECONDS (27.2-37.4) 04/06/25 17:35 Sodium 138 mEq/L (136-145) 04/15/25 05:34 Potassium 4.0 mEq/L (3.5-5.1) 04/15/25 05:34 BUN 14 mg/dL (7-18) 04/15/25 05:34 Creatinine 0.83 mg/dL (0.70-1.30) 04/15/25 05:34 Glucose 93 mg/dL (74-106) 04/15/25 05:34 Phosphorus 3.1 mg/dL (2.5-4.9) 04/09/25 05:00 Magnesium 2.3 mg/dL (1.6-2.4) 04/13/25 08:08 Total Bilirubin 0.7 mg/dL (0.2-1.0) 04/15/25 05:34 AST 44 U/L (15-37) H 04/15/25 05:34 ALT 101 U/L (16-61) H 04/15/25 05:34 Alkaline Phosphatase 76 U/L (45-117) 04/15/25 05:34 Home Medications: NK [No Home Meds] 04/07/25 Physician Discharge Instructions: Physician discharge instructions: Patient presented with fever and dysuria secondary to UTI. Urine culture grew ESBL E. coli only susceptible to Merrem and Nitrofurantoin. CT abdomen was negative for any acute findings, only noted hepatic steatosis. Chest xray was negative for any acute findings. Patient was initially treated with IV zosyn/Rocephin and switched to IV merrem following culture results. Patient felt improvement after switching antibiotics. Blood cultures were without growth. ID was consulted and recommended patient complete 1 week of IV merrem to treat multi drug resistant UTI. PICC line was placed for IV antibiotics on 04/08. Initially planning for patient to finish the rest of his antibiotic course as outpatient however there was some logistical issues with setting up outpatient antibiotics due to insurance / out of network. Patient completed 1 week of IV merrem while hospitalized to treat UTI (04/08- 04/15). Patient was feeling better, urinary symptoms improved, afebrile without leukocytosis for several days and was deemed stable for discharge. LFTs were noted to be mildly elevated during hospitalization. Suspect transient elevation secondary to merrem LFTs improved over the course of his hospitalization. Recommend repeat LFTs in a few weeks to ensure improvement / resolution Labs on admission -> peak -> discharge ALT: 60 -> 102 -> 101 AST: 27 -> 68 -> 44 T. bili: 1.9 -> 2.4 -> 0.7 Medications: no new medications. Follow up: PCP 3-5 days Please call to schedule / confirm appointments Patient was hospitalized from 04/06-04/15. Okay to return to work Tuesday 04/17 without restrictions. Diet: AHA Activity: Ad riaz Followup: NONE,NONE [Primary Care Provider] - Time spent managing pt's care (in minutes): 45
[2025-04-15 08:18] VITALS: BP 117/58; TEMP 97.4
== END 2025-04-15 10:51 | disposition home or self-care (01) | DRG 872 ==
LOC: ER 16:19 → ERHOLD 19:41 → 2ND 21:05
PROVIDERS: ADMIT Family Medicine; ATTEND Hospitalist
PROC: 05H533Z Insertion of Infusion Device into Right Subclavian Vein, Percutaneous Approach (ICD-10-PCS; principal; 2025-04-08)
PROC: 05HC33Z Insertion of Infusion Device into Left Basilic Vein, Percutaneous Approach (ICD-10-PCS; 2025-04-09)
DX: A41.51 Sepsis due to Escherichia coli [E. coli] (principal); Z68.43 Body mass index [BMI] 50.0-59.9, adult; E44.0 Moderate protein-calorie malnutrition; N30.01 Acute cystitis with hematuria; B49 Unspecified mycosis; Z71.3 Dietary counseling and surveillance; E66.01 Morbid (severe) obesity due to excess calories; Z87.440 Personal history of urinary (tract) infections; E83.39 Other disorders of phosphorus metabolism; Z11.52 Encounter for screening for COVID-19; E87.6 Hypokalemia; N28.89 Other specified disorders of kidney and ureter; D69.6 Thrombocytopenia, unspecified
CPT/HCPCS: 36415; 71045; 74176; 76377; 80048; 80053; 81001; 83605; 83735; 84100; 84132; 85025; 85027; 85610; 85730; 87040; 87070; 87077; 87086; 87088; 87186; 94760; 96365; 99285; J0744; J1650; J2185; J2543; J3475; J7030; J7040